=== PATIENT | male | born 1995 | race Caucasian/White ===

== ENCOUNTER 2022-03-20 09:35 | Emergency (ER) | payer OTHER ==
[2022-03-20 09:41] VITALS: RESP 16; TEMP 98.7
[2022-03-20] MEDS ORDERED: SODIUM CHLORIDE 0.9% 1,000 ML IV STA (09:55)
[2022-03-20 10:17] LABS: Basophils % (A) 1 %; Eosinophils # (A) 0.1 k/uL (0-0.7); Eosinophils % (A) 1 %; HGB 15.5 gm/dL (13.0-17.5); Lymphocytes # (A) 1.4 k/uL (1.0-4.8); Lymphocytes % (A) 20 %; MCH 28.5 pg (25.0-35.0); MCV 86.3 fL (80.0-100.0); Mean Platelet Volume 7.4; Monocytes # (A) 0.4 k/uL (0-1.0); Monocytes % (A) 5 %; Neutrophils # (A) 5.1 k/uL (1.3-7.7); Neutrophils % (A) 72 %; Platelet Count 262 k/uL (150-450); RBC 5.44 m/uL (4.30-5.90); RDW 12.6 % (11.5-15.5); WBC 7.1 k/uL (3.8-10.6)
--- NOTE | 2022-03-20 10:21 | XR ---
EXAMINATION TYPE: XR chest 2V DATE OF EXAM: 03/20/2022 10:17 AM COMPARISON: None TECHNIQUE: XR chest 2V Frontal and lateral views of the chest. CLINICAL INDICATION:Male, 27 years old with history of Weakness; FINDINGS: Lungs/Pleura: There is no evidence of pleural effusion, focal consolidation, or pneumothorax. Pulmonary vascularity: Unremarkable. Heart/mediastinum: Cardiomediastinal silhouette is unremarkable. Musculoskeletal: No acute osseous pathology. IMPRESSION: No acute cardiopulmonary disease/process.
--- NOTE | 2022-03-20 10:34 | ED ---
Weakness HPI - General Chief complaint: Weakness Stated complaint: Dehydration Time Seen by Provider: 03/20/22 09:43 Source: patient, EMS Mode of arrival: EMS Limitations: no limitations - History of Present Illness Initial comments: This is a 27-year-old male who presents to the emergency department for weakness, disorientation, and decreased sensation in all extremities. Patient states that he is being worked up for Yoohmlo-Dgalw-Ktqhr disease. Currently seeing Dr. Tapia, neurology, and has seen him 3 times since December of this year. 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 The last step is genetic testing, which has yet to be scheduled. Treatment at this time is going to consist of physical therapy which he is waiting on an appointment for. His muscle weakness and decreased sensation has continued to progress. States that he does not feel much pain anywhere in his body. The disorientation is new, he feels like "I am not in my own brain". Also complains of sleeping problems, in that he is unable to feel rested. Also has problems with memory loss and holding attention. Denies any fevers, chills, sore throat, cough, dyspnea, chest pain, palp itations, abdominal pain, nausea, vomiting, diarrhea, back pain, or headaches. MD Complaint: generalized weakness Context: other (Ckfpglo-Sgcmk-Pffbu disease) - Related Data Home Medications Medication Instructions Recorded Confirmed Budesonide/Formoterol Fumarate 2 puff INHALATION RT-BID 03/20/22 03/20/22 [Symbicort 80-4.5 Mcg Inhaler] Cyanocobalamin (Vitamin B-12) 1,000 mcg PO DAILY 03/20/22 03/20/22 [Vitamin B-12] Ergocalciferol [Vitamin D2 (1250 1,250 mcg PO FR 03/20/22 03/20/22 Mcg = 28289 Iu)] Fluticasone Propion/Salmeterol 2 puff INHALATION RT-BID 03/20/22 03/20/22 [Advair Hfa 45-21 Mcg Inhaler] Allergies Allergy/AdvReac Type Severity Reaction Status Date / Time ciprofloxacin [From Cipro] Allergy Rash/Hives Verified 03/20/22 11:22 Latex, Natural Rubber Allergy Rash/Hives Verified 03/20/22 11:22 morphine Allergy Rash/Hives Verified 03/20/22 11:22 sulfamethoxazole Allergy Rash/Hives Verified 03/20/22 11:22 [From Bactrim] trimethoprim [From Bactrim] Allergy Rash/Hives Verified 03/20/22 11:22 Review of Systems ROS Statement: Those systems with pertinent positive or pertinent negative responses have been documented in the HPI. ROS Other: All systems not noted in ROS Statement are negative. 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 Absent: respiratory distress, wheezes, rales, rhonchi, stridor Cardiovascular Exam: Present: regular rate, normal rhythm, normal heart sounds. Absent: systolic murmur, diastolic murmur, rubs, gallop, clicks Neurological exam: Present: alert, oriented X3, CN II-XII intact, other (Decreased sphincter tone) Psychiatric exam: Present: normal affect, normal mood Skin exam: Present: warm, dry, intact, normal color. Absent: rash Course Vital Signs 03/20/22 03/20/22 09:36 11:44 Temperature 98.7 F Pulse Rate 83 98 Respiratory 16 16 Rate Blood Pressure 133/72 125/78 O2 Sat by Pulse 100 98 Oximetry Medical Decision Making - Medical Decision Making This is a 27-year-old male who presents to the emergency department for muscle weakness and disorientation. Lab work was nonactionable. Given the newer symptoms, computed tomography scan of the brain was obtained revealing no acute abnormalities. Patient was found to have a PVR of 0, however he does have little to no sphincter tone. I spoke with Dr. Montejo, who spoke with Dr. 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 Given that he has numbness and decreased sensation in the bilateral lower extremities, as well as loss of bowel/bladder control, CT scan of the lumbar spine was obtained to evaluate for possible cauda equina syndrome. This revealed no irregularities. Patient will be discharged home with instructions to follow up with his neurologist as an outpatient. Return precautions reviewed in depth, the patient is instructed to return to the emergency department with any new, worsening, or concerning symptoms. Patient verbalized understanding. This case was discussed in detail with the attending ED physician. Presentation, findings, and treatment plan discussed in detail as well. - Lab Data Result diagrams: 03/20/22 10:07 03/20/22 10:07 Lab Results 03/20/22 03/20/22 03/20/22 Range/Units 09:55 09:55 10:07 WBC 7.1 (3.8-10.6) k/uL RBC 5.44 (4.30-5.90) m/uL Hgb 15.5 (13.0-17.5) gm/dL Hct 47.0 (39.0-53.0) % MCV 86.3 (80.0-100.0) fL MCH 28.5 (25.0-35.0) pg MCHC 33.0 (31.0-37.0) g/dL RDW 12.6 (11.5-15.5) % Plt Count 262 (150-450) k/uL MPV 7.4 Neutrophils % 72 % Lymphocytes % 20 % Monocytes % 5 % Eosinophils % 1 % Basophils % 1 % Neutrophils # 5.1 (1.3-7.7) k/uL Lymphocytes # 1.4 (1.0-4.8) k/uL Monocytes # 0.4 (0-1.0) k/uL Eosinophils # 0.1 (0-0.7) k/uL Basophils # 0.0 (0-0.2) k/uL Sodium (137-145) mmol/L Potassium (3.5-5.1) mmol/L Chloride (98-107) mmol/L Carbon Dioxide (22-30) mmol/L Anion Gap mmol/L BUN (9-20) mg/dL Creatinine (0.66-1.25) mg/dL Est GFR (CKD-EPI)AfAm (>60 ml/min/1.73 sqM) Est GFR (CKD-EPI)NonAf (>60 ml/min/1.73 sqM) Glucose (74-99) mg/dL Calcium (8.4-10.2) mg/dL Phosphorus (2.5-4.5) mg/dL Magnesium (1.6-2.3) mg/dL Total Bilirubin (0.2-1.3) mg/dL AST (17-59) U/L ALT (4-49) U/L Alkaline Phosphatase (38-126) U/L Total Protein (6.3-8.2) g/dL Albumin (3.5-5.0) g/dL Urine Color Colorless Urine Appearance Clear (Clear) Urine pH 6.0 (5.0-8.0) Ur Specific [place] 1.006 (1.001-1.035) Urine Protein Negative (Negative) Urine Glucose (UA) Negative (Negative) Urine Ketones 1+ H (Negative) Urine Blood Negative (Negative) Urine Nitrite Negative (Negative) Urine Bilirubin Negative (Negative) Urine Urobilinogen <2.0 (<2.0) mg/dL Ur Leukocyte Esterase Negative (Negative) Urine Opiates Screen Not Detected (NotDetected) Ur Oxycodone Screen Not Detected (NotDetected) Urine Methadone Screen Not Detected (NotDetected) Ur Propoxyphene Screen Not Detected (NotDetected) Ur Barbiturates Screen Not Detected (NotDetected) U Tricyclic Antidepress Not Detected (NotDetected) Ur Phencyclidine Scrn Not Detected (NotDetected) Ur Amphetamines Screen Not Detected (NotDetected) U Methamphetamines Scrn Not Detected (NotDetected) U Benzodiazepines Scrn Not Detected (NotDetected) Urine Cocaine Screen Not Detected (NotDetected) U Marijuana (THC) Screen Not Detected (NotDetected) 03/20/22 Range/Units 10:07 WBC (3.8-10.6) k/uL RBC (4.30-5.90) m/uL Hgb (13.0-17.5) gm/dL Hct (39.0-53.0) % MCV (80.0-100.0) fL MCH (25.0-35.0) pg MCHC (31.0-37.0) g/dL RDW (11.5-15.5) % Plt Count (150-450) k/uL MPV Neutrophils % % Lymphocytes % % Monocytes % % Eosinophils % % Basophils % % Neutrophils # (1.3-7.7) k/uL Lymphocytes # (1.0-4.8) k/uL Monocytes # (0-1.0) k/uL Eosinophils # (0-0.7) k/uL Basophils # (0-0.2) k/uL Sodium 139 (137-145) mmol/L Potassium 3.6 (3.5-5.1) mmol/L Chloride 114 H (98-107) mmol/L Carbon Dioxide 17 L (22-30) mmol/L Anion Gap 8 mmol/L BUN 20 (9-20) mg/dL Creatinine 0.67 (0.66-1.25) mg/dL Est GFR (CKD-EPI)AfAm >90 (>60 ml/min/1.73 sqM) Est GFR (CKD-EPI)NonAf >90 (>60 ml/min/1.73 sqM) Glucose 88 (74-99) mg/dL Calcium 8.4 (8.4-10.2) mg/dL Phosphorus 2.1 L (2.5-4.5) mg/dL Magnesium 1.7 (1.6-2.3) mg/dL Total Bilirubin 0.6 (0.2-1.3) mg/dL AST 20 (17-59) U/L ALT 19 (4-49) U/L Alkaline Phosphatase 58 (38-126) U/L Total Protein 6.3 (6.3-8.2) g/dL Albumin 3.9 (3.5-5.0) g/dL Urine Color Urine Appearance (Clear) Urine pH (5.0-8.0) Ur Specific [place] (1.001-1.035) Urine Protein (Negative) Urine Glucose (UA) (Negative) Urine Ketones (Negative) Urine Blood (Negative) Urine Nitrite (Negative) Urine Bilirubin (Negative) Urine Urobilinogen (<2.0) mg/dL Ur Leukocyte Esterase (Negative) Urine Opiates Screen (NotDetected) Ur Oxycodone Screen (NotDetected) Urine Methadone Screen (NotDetected) Ur Propoxyphene Screen (NotDetected) Ur Barbiturates Screen (NotDetected) U Tricyclic Antidepress (NotDetected) Ur Phencyclidine Scrn (NotDetected) Ur Amphetamines Screen (NotDetected) U Methamphetamines Scrn (NotDetected) U Benzodiazepines Scrn (NotDetected) Urine Cocaine Screen (NotDetected) U Marijuana (THC) Screen (NotDetected) - Radiology Data Radiology results: report reviewed, image reviewed Disposition Clinical Impression: Weakness, CMT (Dyseiom-Expzi-Ufpch disease) Disposition: HOME SELF-CARE Instructions (If sedation given, give patient instructions): Weakness (ED) Additional Instructions: Return to the emergency department with any new, worsening, or concerning symptoms. Follow-up with your neurologist for an outpatient MRI of the lumbar spine. Your CT scan of the lumbar spine was normal. Is patient prescribed a controlled substance at d/c from ED?: No Referrals: Megan Cruz DO [Primary Care Provider] - 1-2 days
[2022-03-20 10:41] LABS: ALT 19 U/L (4-49); AST 20 U/L (17-59); African American GFR (CKD) >90 (>60 ml/min/1.73 sqM); Albumin 3.9 g/dL (3.5-5.0); Alkaline Phosphatase 58 U/L (38-126); Anion Gap 8 mmol/L; Blood Urea Nitrogen 20 mg/dL (9-20); Calcium 8.4 mg/dL (8.4-10.2); Carbon Dioxide 17 mmol/L (22-30); Chloride 114 mmol/L (98-107); Glucose 88 mg/dL (74-99); Magnesium 1.7 mg/dL (1.6-2.3); Non-African American GFR(CKD) >90 (>60 ml/min/1.73 sqM); Phosphorus 2.1 mg/dL (2.5-4.5); Potassium 3.6 mmol/L (3.5-5.1); Sodium 139 mmol/L (137-145); Total Bilirubin 0.6 mg/dL (0.2-1.3); Total Protein 6.3 g/dL (6.3-8.2)
[2022-03-20 11:13] LABS: Appearance,Urine Clear (Clear); Bilirubin,Urine Negative (Negative); Blood,Urine Negative (Negative); Color,Urine Colorless; Glucose,Urine (UA) Negative (Negative); Ketones,Urine 1+ (Negative); Leukocyte Esterase,Urine Negative (Negative); Nitrite,Urine Negative (Negative); Protein,Urine Negative (Negative); Specific Gravity,Urine 1.006 (1.001-1.035); Urobilinogen,Urine <2.0 mg/dL (<2.0)
--- NOTE | 2022-03-20 11:29 | CT ---
EXAMINATION TYPE: CT brain wo con CT DLP: 1056.4 mGycm, Automated exposure control for dose reduction was used. DATE OF EXAM: 03/20/2022 11:14 AM COMPARISON: None. CLINICAL INDICATION:Male, 27 years old with history of Facial numbness, disorientation, Facial numbne ss, disorientation TECHNIQUE: Brain: Axial CT images of the brain were obtained with coronal and sagittal reformats created and rev iewed. Contrast used: None. Oral contrast used: None. FINDINGS: Brain: Extra-axial spaces: No abnormal extra-axial fluid collections. Ventricular system: Within normal limits Cerebral parenchyma: No acute intraparenchymal hemorrhage or mass effect. The baez-white junction is well differentiated. Cerebellum: Unremarkable. Mass effect: No evidence of midline shift. Intracranial vasculature: unremarkable Soft tissues: Normal. Calvarium/osseous structures: No depressed skull fracture. Paranasal sinuses and mastoid air cells: Clear Visualized orbits: Orbital contents are intact. IMPRESSION: No acute intracranial process.
[2022-03-20 11:33] LABS: Phencyclidine Screen,Urine Not Detected (NotDetected); Urn Cannabinoid Scrn Not Detected (NotDetected)
[2022-03-20 11:34] LABS: Amphetamine Screen,Urine Not Detected (NotDetected); Barbiturate Screen,Urine Not Detected (NotDetected); Benzodiazepines Screen,Urine Not Detected (NotDetected); Cocaine Screen,Urine Not Detected (NotDetected); Methadone Screen, Urine Not Detected (NotDetected); Opiate Screen,Urine Not Detected (NotDetected); Oxycodone Screen, Urine Not Detected (NotDetected); Tricyclic Antidepressant,Urine Not Detected (NotDetected)
--- NOTE | 2022-03-20 13:44 | CT ---
EXAMINATION TYPE: CT lumbar spine wo con DATE OF EXAM: 03/20/2022 COMPARISON: None HISTORY: Bilateral lower extremity numbness CT DLP: 587.6 mGycm Automated exposure control for dose reduction was used. An unenhanced CT of the lumbar spine was performed. Bone and soft tissue window settings are submitt ed as well as coronal and sagittal reconstructions. FINDINGS: Lumbar vertebral bodies show preserved height and alignment, lumbar vertebral bodies are intact. Bone mineralization is maintained. Disc spaces are maintained. No evident spinal stenosis or disc herniat ion. No evident neural foraminal encroachment. 4 nonrib-bearing lumbar vertebral segments are present , suspect transitional vertebral body. Lung bases are clear as visualized. Punctate calcification s associated with the right kidney and lef t kidney. L1-L2: Normal disc space height. No disc herniation protrusion or central stenosis. No facet joint arthropathy. No evidence for foraminal encroachment. L2-L3: Normal disc space height. No disc herniation protrusion or central stenosis. No facet joint arthropathy. No evidence for foraminal encroachment. L3-L4: Normal disc space height. No disc herniation protrusion or central stenosis. No facet joint arthropathy. No evidence for foraminal encroachment. L4-S1: Normal disc space height. No disc herniation protrusion or central stenosis. No facet joint arthropathy. No evidence for foraminal encroachment. IMPRESSION: No paraspinal masses are identified. Lumbar segments are intact. Bilateral nephrolithiasis is nonobs tructive.
[2022-03-20 13:59] VITALS: BP 118/74; PULSE 72
== END 2022-03-20 14:03 | disposition home or self-care (01) ==
LOC: EC 09:35
DX: E86.0 Dehydration (principal); G50.9 Disorder of trigeminal nerve, unspecified; J43.9 Emphysema, unspecified; Z88.1 Allergy status to other antibiotic agents; Z91.040 Latex allergy status; Z88.5 Allergy status to narcotic agent; Z88.2 Allergy status to sulfonamides; Z79.51 Long term (current) use of inhaled steroids
CPT/HCPCS: 36415; 51798; 70450; 71046; 72131; 80053; 80306; 81003; 83735; 84100; 85025; 96360; 99284

== ENCOUNTER 2022-03-22 12:40 | Inpatient (IN) | payer OTHER ==
[2022-03-22] MEDS ORDERED: LORazepam 1 MG TAB PO STA (13:05)
--- NOTE | 2022-03-22 13:06 | ED ---
General Adult HPI - General Chief complaint: Psychiatric Symptoms Stated complaint: EPS eval Time Seen by Provider: 03/22/22 12:41 Source: EMS, RN notes reviewed, old records reviewed Mode of arrival: EMS Limitations: no limitations - History of Present Illness Initial comments: Patient is a 27-year-old male with past medical history remarkable for anxiety, depression, Bipolar disorder, peripheral nerve disease who presents emergency Department complaining of anxiety, perseverant sober . States he was recently diagnosed with the nerve disease, and states he can't think of anything other than over the last few days. He denies any suicidal or homicidal ideations, attempts, plans. Denies any visual or auditory hallucinations. He describes his experience as "out of body" when he is watching himself and that he can only think about . He is due to follow-up with psychiatry next week but doesn't believe she can make it until then. Wants to be evaluated at this time. Unknown psychiatric medications. Denies any other acute complaints at this time couldn't chest pain, abdominal pain, nausea, vomiting. States he is anxious. Denies any alcohol use, drug use. His no other acute complaints at this time. Presents wishing to speak with psychiatry. - Related Data Home Medications Medication Instructions Recorded Confirmed Budesonide/Formoterol Fumarate 2 puff INHALATION RT-BID 03/20/22 03/22/22 [Symbicort 80-4.5 Mcg Inhaler] Cyanocobalamin (Vitamin B-12) 1,000 mcg PO DAILY 03/20/22 03/22/22 [Vitamin B-12] Ergocalciferol [Vitamin D2 (1250 1,250 mcg PO FR 03/20/22 03/22/22 Mcg = 60770 Iu)] Fluticasone Propion/Salmeterol 2 puff INHALATION RT-BID 03/20/22 03/22/22 [Advair Hfa 45-21 Mcg Inhaler] OLANZapine [ZyPREXA] 2.5 mg PO HS 03/22/22 03/22/22 Venlafaxine HCl [Effexor] 37.5 mg PO DAILY 03/22/22 03/22/22 Allergies Allergy/AdvReac Type Severity Reaction Status Date / Time ciprofloxacin [From Cipro] Allergy Rash/Hives Verified 03/22/22 12:46 Latex, Natural Rubber Allergy Rash/Hives Verified 03/22/22 12:46 morphine Allergy Rash/Hives Verified 03/22/22 12:46 sulfamethoxazole Allergy Rash/Hives Verified 03/22/22 12:46 [From Bactrim] trimethoprim [From Bactrim] Allergy Rash/Hives Verified 03/22/22 12:46 Review of Systems ROS Statement: Those systems with pertinent positive or pertinent negative responses have been documented in the HPI. Review of Systems: CONST: Denies fever EYES: Denies blurry vision ENT: Denies nasal congestion C/V: Denies Chest pain RESP: Denies shortness of breath GI: Denies abdominal pain : Denies dysuria SKIN: Denies rash. MSK: Denies joint pain. NEURO: Denies headache PSYCH: Denies suicidal and homicidal ideations/plans/attempts. Denies visual or auditory hallucinations. Endorses anxiety ROS Other: All systems not noted in ROS Statement are negative. 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 HEAD: Normal with no signs of head trauma. EYES: PERRLA, EOMI, conjunctiva normal, no discharge. Pupils are 3 mm and equal bilaterally. ENT: Hearing grossly intact, normal oropharynx. RESPIRATORY: Clear breath sounds bilaterally. No wheezes, rales, or rhonchi. C/V: Regular rate and rhythm. S1 and S2 auscultated. Peripheral pulses 2+ and intact throughout. ABD: Abd is soft, nontender, nondistended EXT: Normal range of motion, no obvious deformity SKIN: No rashes or lesions observed on exposed skin. NEURO: Alert and oriented 4. Limitations: no limitations Course Vital Signs 03/22/22 03/22/22 12:44 17:03 Temperature 97.7 F 98.8 F Pulse Rate 85 Pulse Rate [ 101 H Right Sitting Pulse Oximetery ] Respiratory 22 16 Rate Blood Pressure 119/108 Blood Pressure 127/80 [Right Arm Sitting] O2 Sat by Pulse 100 97 Oximetry Medical Decision Making - Medical Decision Making Based on the patient's presentation and physical exam, I do believe he would isai efit from a psychiatric evaluation. Was placed in green scrubs. Sitter was ordered. We'll obtain a BAT, which is 0. UDS is pending. I do not believe that we require further laboratory studies or imaging at this time. His no other acute complaints. Vital signs within normal limits. Will be given a dose of Ativan for anxiety. At this time, patient is medically cleared. Disposition is pending EPS and psychiatry evaluation.Patient was evaluated by EPS and determined that he meets inpatient criteria. He'll be admitted to inpatient psychiatry. - Lab Data Lab Results 03/22/22 03/22/22 Range/Units 13:10 15:30 Urine Opiates Screen Not Detected (NotDetected) Ur Oxycodone Screen Not Detected (NotDetected) Urine Methadone Screen Not Detected (NotDetected) Ur Propoxyphene Screen Not Detected (NotDetected) Ur Barbiturates Screen Not Detected (NotDetected) U Tricyclic Antidepress Not Detected (NotDetected) Ur Phencyclidine Scrn Not Detected (NotDetected) Ur Amphetamines Screen Not Detected (NotDetected) U Methamphetamines Scrn Not Detected (NotDetected) U Benzodiazepines Scrn Not Detected (NotDetected) Urine Cocaine Screen Not Detected (NotDetected) U Marijuana (THC) Screen Not Detected (NotDetected) Coronavirus (PCR) Not Detected (Not Detectd) Disposition Clinical Impression: Encounter for psychiatric assessment Disposition: ADMITTED IP TO THIS [facility] Condition: Stable
[2022-03-22 13:58] LABS: Amphetamine Screen,Urine Not Detected (NotDetected); Barbiturate Screen,Urine Not Detected (NotDetected); Benzodiazepines Screen,Urine Not Detected (NotDetected); Cocaine Screen,Urine Not Detected (NotDetected); Methadone Screen, Urine Not Detected (NotDetected); Opiate Screen,Urine Not Detected (NotDetected); Oxycodone Screen, Urine Not Detected (NotDetected); Phencyclidine Screen,Urine Not Detected (NotDetected); Tricyclic Antidepressant,Urine Not Detected (NotDetected); Urn Cannabinoid Scrn Not Detected (NotDetected)
[2022-03-22] MEDS ORDERED: haloperidoL 5 MG TAB PO PRN (16:09)
[2022-03-22] MEDS ORDERED: MAG HYDROX/AL HYDROX/SIMETH 30 ML CUP PO PRN (16:09)
[2022-03-22] MEDS ORDERED: MAGNESIUM HYDROXIDE 2,400 MG/10 ML CUP PO PRN (16:09)
[2022-03-22] MEDS ORDERED: hydrOXYzine HCL 50 MG/ML 1 ML VIAL IM PRN (16:09)
[2022-03-22] MEDS ORDERED: ACETAMINOPHEN TAB 325 MG TAB PO PRN (16:09)
[2022-03-22] MEDS ORDERED: HALOPERIDOL LACTATE 5 MG/ML 1 ML VIAL IM PRN (16:09)
[2022-03-22] MEDS ORDERED: NICOTINE 14MG/24HR PATCH TRANSDERM SCH (16:30)
[2022-03-22 17:51] LABS: Appearance,Urine Clear (Clear); Bilirubin,Urine Negative (Negative); Blood,Urine Negative (Negative); Color,Urine Light Yellow; Glucose,Urine (UA) Negative (Negative); Ketones,Urine 2+ (Negative); Leukocyte Esterase,Urine Negative (Negative); Nitrite,Urine Negative (Negative); PH, Urine 5.5 (5.0-8.0); Protein,Urine Negative (Negative); Specific Gravity,Urine 1.014 (1.001-1.035); Urobilinogen,Urine <2.0 mg/dL (<2.0)
[2022-03-22] MEDS ORDERED: FLUTICASONE PROPION INHALATION SCH (20:00)
[2022-03-22] MEDS ORDERED: SALMETEROL INHALATION SCH (20:00)
[2022-03-22] MEDS ORDERED: [UNRECOGNIZED DRUG - OTHER] INHALATION SCH (20:00)
[2022-03-22] MEDS: traZODone HCL 50 MG TAB PO SCH (20:30)
[2022-03-22] MEDS: SYMBICORT 80-4.5 MCG INHALER INHALATION SCH (20:30)
--- NOTE | 2022-03-23 01:27 | P.CONS ---
History of Present Illness - Reason for Consult Consult date: 03/22/22 - History of Present Illness The patient is a 27-year-old male with a PMH of asthma who presented to the emergency room with complaints of depression and suicidal ideation. The patient was admitted the mental health unit where he was seen and evaluated. 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 Patient reports that he has developed paresthesias of his upper and lower extremities including his hands and feet extending to mid shins and mid forearms. He reports still having pressure sensation as well as temperature with some diminished pain sensation. He denied any additional complaints. He denied experiencing chest discomfort, shortness of breath, fever, chills, cough, nausea, vomiting, abdominal pain, diarrhea. Denied tobacco, illicit substance, or alcohol use. Review of systems: Pertinent positives and negatives as discussed in HPI, a complete review of systems was performed and all other systems are negative. Physical examination: General: non toxic, no distress, appears older than stated age, normal weight Derm: no unusual rashes/lesions, no unusual ecchymoses, warm, dry Head: atraumatic, normocephalic, symmetric Eyes: EOMI, no lid lag, anicteric sclera ENT: Nose and ears atraumatic, no thrush, no pharyngeal erythema Neck: trachea midline, supple Mouth: no lip lesion, mucus membranes moist Cardiovascular: S1S2 reg, no murmur, no edema Lungs: CTA bilateral, no rhonchi, no rales , no accessory muscle use Abdominal: soft, nontender to palpation, no guarding Ext: no gross muscle atrophy, no contractures, Neuro: No gross focal neuro deficits noted Psych: Alert, oriented, appropriate affect Assessment/plan Chronic Asthma -Continue the home meds Depression with suicidal ideation -As per psychiatry Thank you for allowing us to participate in the care of this patient. We will follow peripherally. Do not hesitate to contact us with questions. Someone can be reached from the [facility] hospitalist group at all hours of the day at [phone]. 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, emphysema History of Any Multi-Drug Resistant Organisms: None Reported Past Surgical History: Adenoidectomy Past Anesthesia/Blood Transfusion Reactions: No Reported Reaction Past Psychological History: Anxiety, Bipolar, Depression Smoking Status: Never smoker Past Alcohol Use History: None Reported Past Drug Use History: None Reported - Past Family History Father Family Medical History: Hypertension Medications and Allergies Home Medications Medication Instructions Recorded Confirmed Type Budesonide/Formoterol Fumarate 2 puff INHALATION RT-BID 03/20/22 03/22/22 History [Symbicort 80-4.5 Mcg Inhaler] Cyanocobalamin (Vitamin B-12) 1,000 mcg PO DAILY 03/20/22 03/22/22 History [Vitamin B-12] Ergocalciferol [Vitamin D2 (1250 1,250 mcg PO FR 03/20/22 03/22/22 History Mcg = 65370 Iu)] Fluticasone Propion/Salmeterol 2 puff INHALATION RT-BID 03/20/22 03/22/22 History [Advair Hfa 45-21 Mcg Inhaler] OLANZapine [ZyPREXA] 2.5 mg PO HS 03/22/22 03/22/22 History Venlafaxine HCl [Effexor] 37.5 mg PO DAILY 03/22/22 03/22/22 History Allergies Allergy/AdvReac Type Severity Reaction Status Date / Time ciprofloxacin [From Cipro] Allergy Rash/Hives Verified 03/22/22 12:46 Latex, Natural Rubber Allergy Rash/Hives Verified 03/22/22 12:46 morphine Allergy Rash/Hives Verified 03/22/22 12:46 sulfamethoxazole Allergy Rash/Hives Verified 03/22/22 12:46 [From Bactrim] trimethoprim [From Bactrim] Allergy Rash/Hives Verified 03/22/22 12:46 Physical Exam Vitals: Vital Signs Temp Pulse Pulse Resp BP BP Pulse Ox 03/22/22 17:03 98.8 F 101 H 16 127/80 97 03/22/22 12:44 97.7 F 85 22 119/108 100 Intake and Output 03/22/22 03/22/22 03/22/22 06:59 14:59 22:59 Other: Weight 54.431 kg 53.977 kg Results Labs: Abnormal Lab Results - Last 24 Hours (Table) 03/22/22 Range/Units 13:10 Urine Ketones 2+ H (Negative)
[2022-03-23] MEDS ORDERED: VENLAFAXINE HCL ER 37.5 MG CAP PO SCH (09:00)
[2022-03-23] MEDS: SYMBICORT 80-4.5 MCG INHALER INHALATION SCH ×2 (09:15→21:28)
[2022-03-23] MEDS: hydrOXYzine pamoate 25 MG CAP PO PRN (09:18)
[2022-03-23 09:56] LABS: Basophils # (A) 0.1 k/uL (0-0.2); Basophils % (A) 1 %; Eosinophils # (A) 0.1 k/uL (0-0.7); Eosinophils % (A) 1 %; HCT 52.4 % (39.0-53.0); HGB 17.4 gm/dL (13.0-17.5); Lymphocytes # (A) 1.4 k/uL (1.0-4.8); Lymphocytes % (A) 24 %; MCH 29.7 pg (25.0-35.0); MCHC 33.2 g/dL (31.0-37.0); MCV 89.2 fL (80.0-100.0); Mean Platelet Volume 7.2; Monocytes # (A) 0.4 k/uL (0-1.0); Monocytes % (A) 7 %; Neutrophils % (A) 65 %; Platelet Count 296 k/uL (150-450); RBC 5.88 m/uL (4.30-5.90); WBC 6.1 k/uL (3.8-10.6)
[2022-03-23 10:13] LABS: ALT 21 U/L (4-49); AST 21 U/L (17-59); African American GFR (CKD) >90 (>60 ml/min/1.73 sqM); Albumin 5.1 g/dL (3.5-5.0); Alkaline Phosphatase 64 U/L (38-126); Anion Gap 8 mmol/L; Bilirubin, Delta 0.1 mg/dL (0.0-0.2); Blood Urea Nitrogen 15 mg/dL (9-20); Calcium 9.9 mg/dL (8.4-10.2); Carbon Dioxide 26 mmol/L (22-30); Chloride 104 mmol/L (98-107); Glucose 64 mg/dL (74-99); Non-African American GFR(CKD) >90 (>60 ml/min/1.73 sqM); Potassium 5.4 mmol/L (3.5-5.1); Sodium 138 mmol/L (137-145); Total Bilirubin 1.1 mg/dL (0.2-1.3); Total Protein 8.2 g/dL (6.3-8.2)
[2022-03-23] MEDS ORDERED: FLUoxetine HCL 10 MG CAP PO STA (10:31)
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
[2022-03-23 14:18] LABS: Chol/HDL Ratio 3.01 Ratio; LDL Cholesterol,Calculated 79.2 mg/dL (0.0-131.0); VLDL Calculation 13.02 mg/dL (5.00-40.00)
[2022-03-23] MEDS: traZODone HCL 50 MG TAB PO SCH (21:28)
[2022-03-24] MEDS: SYMBICORT 80-4.5 MCG INHALER INHALATION SCH ×2 (09:17→20:56)
[2022-03-24] MEDS: FLUoxetine HCL 20 MG CAP PO SCH (09:17)
--- NOTE | 2022-03-24 20:43 | P.PN ---
Progress Note - Text Progress Note Date: 03/24/22 Interval History: Patient was directable and agreeable to speak with property underwriter in the office. At this time patient denies any suicidal or homical ideations, intent or plan. Patient denies any auditory, visual hallucinations and denies any paranoia or delusions. Patient denies any side effects from the medications and has been compliant with meds. He reports he still feels "off", doesn't feel his body in the same way he used to, due to his concerns over his CMT disease. He denies panic attacks. He states he feels no emotions and thinks about his "" constantly. He denies thoughts of killing or hurting himself, but thinks about his own natural . He reports he has been under a lot of stress over the past 6 months. Mental Status Exam: General Appearance: Patient appears to be stated age, just showered, dressed in clean attire, unshaven. Behavior: Patient is calmly seated without any agitated behavior. Speech: Patient's speech is fluent and non-pressured. Mood/Affect: Mood is "off", affect is congruent and constricted. Suicidality/Homicidality: Patient denies having any suicidal or homicidal ideation intent or plan. Perceptions: Patient denies any visual hallucinations and denies any auditory hallucinations. Thought process: Ruminates Though content: There is no evidence of any delusional thought content. Memory and concentration: AOX3, grossly intact for the purposes of this session Judgment and insight: Improving mildly Assessment: Depersonalization/derealization disorder Major depressive disorder, recurrent Generalized anxiety disorder Plan: -Patient continues to meet criteria for inpatient psychiatric admission for symptom stabilization and safety. -Medications: Prozac increased to 40 mg daily starting today for depression/anxiety. He may benefit from the addition of an antipsychotic for his ruminations and fixation on his . -When necessary Ativan and Haldol for agitation/aggression. -SW on board for discharge planning. Encouraged the patient to participate in milieu.
[2022-03-24] MEDS: traZODone HCL 50 MG TAB PO SCH (20:45)
[2022-03-25] MEDS: SYMBICORT 80-4.5 MCG INHALER INHALATION SCH ×2 (09:00→20:47)
[2022-03-25] MEDS: FLUoxetine HCL 20 MG CAP PO SCH (09:00)
[2022-03-25] MEDS ORDERED: traZODone HCL 50 MG TAB PO PRN (16:09)
--- NOTE | 2022-03-25 16:13 | P.PN ---
Progress Note - Text Progress Note Date: 03/25/22 Interval History: Patient was directable and agreeable to speak with brief writer. He reports he still feels "out of it" and "maybe a little depressed", reports having "no thoughts" except for repeated thoughts about his own . He denies suicidal or homical ideations, intent or plan, but continuously thinks about his own due to his CMT disease. Patient denies any auditory, visual hallucinations and denies any paranoia or delusions. Patient denies any side effects from the medications and has been compliant with meds. He reports he is forcing himself to eat but doesn't have much of an appetite, and believes he has lost weight. His BMI is in the underweight range. He reports fair sleep with the Trazodone but does not feel well rested. Mental Status Exam: General Appearance: Patient appears to be stated age, dressed in clean baggy attire, unshaven, appears underweight. Behavior: Patient is calm without any agitated behavior. Speech: Patient's speech is fluent and non-pressured. Mood/Affect: Mood is "out of it", affect is congruent and constricted. Suicidality/Homicidality: Patient denies having any suicidal or homicidal ideation intent or plan, but reports he is repeatedly thinking about his down . Perceptions: Patient denies any visual hallucinations and denies any auditory hallucinations. Thought process: Ruminates Though content: There is no evidence of any delusional thought content, but is fixated on his own due to his CMT disease. Memory and concentration: AOX3, grossly intact for the purposes of this session Judgment and insight: Improving mildly Assessment: Depersonalization/derealization disorder Major depressive disorder, recurrent, with concern for psychotic features Generalized anxiety disorder Plan: -Patient continues to meet criteria for inpatient psychiatric admission for symptom stabilization and safety. -Medications: Continue Prozac 40 mg daily for depression/anxiety. Start Zyprexa 5 mg QHS for augmentation/obsession on his own /appetite/sleep. -When necessary Ativan and Haldol for agitation/aggression. -SW on board for discharge planning. Encouraged the patient to participate in milieu.
[2022-03-25] MEDS: OLANZapine 5 MG TAB PO SCH (20:47)
[2022-03-26] MEDS: SYMBICORT 80-4.5 MCG INHALER INHALATION SCH ×2 (08:53→20:55)
[2022-03-26] MEDS: FLUoxetine HCL 20 MG CAP PO SCH (08:53)
--- NOTE | 2022-03-26 20:06 | P.PN ---
Progress Note - Text Progress Note Date: 03/26/22 Interval History: Patient was directable and agreeable to speak with screenplay writer. He reports he still feels "a little more clear headed" today after starting the Zyprexa last night, and feels his obsessive thoughts about his own are "25%" less intense today, but still present. He denies active suicidal or homical ideations, intent or plan, but continuously thinks about his own due to his CMT disease. Patient denies any auditory, visual hallucinations, and denies any paranoia, but does appear to be somatically preoccupied. Patient has been compliant with meds and reports feeling a little bit dizzy today. He reports he is forcing himself to eat but still doesn't have much of an appetite. He reports good sleep, denies depressed mood but still appears anxious. Mental Status Exam: General Appearance: Patient appears to be stated age, dressed in clean baggy attire, unshaven, appears underweight. Behavior: Patient is calm without any agitated behavior. Speech: Patient's speech is fluent and non-pressured. Mood/Affect: Mood is anxious, "a little more clear headed", affect is congruent and constricted. Suicidality/Homicidality: Patient denies having any active suicidal or homicidal ideation intent or plan, but reports he is repeatedly thinking about his down . Perceptions: Patient denies any visual hallucinations and denies any auditory hallucinations. Thought process: Ruminates Though content: No overt paranoid delusions, but he does appear to be somatically preoccupied and fixated on his own due to his CMT disease. Memory and concentration: AOX3, grossly intact for the purposes of this session Judgment and insight: Improving mildly Assessment: Depersonalization/derealization disorder Major depressive disorder, recurrent, with concern for psychotic features Generalized anxiety disorder Plan: -Patient continues to meet criteria for inpatient psychiatric admission for symptom stabilization and safety. -Medications: Continue Prozac 40 mg daily for depression/anxiety. Increase Zyprexa to 2.5 mg daily in the morning and 5 mg QHS for augmentation/obsession on his own /appetite/sleep. -When necessary Ativan and Haldol for agitation/aggression. -SW on board for discharge planning. Encouraged the patient to participate in milieu.
[2022-03-26] MEDS: OLANZapine 5 MG TAB PO SCH (20:55)
[2022-03-27] MEDS: FLUoxetine HCL 20 MG CAP PO SCH (08:33)
[2022-03-27] MEDS: SYMBICORT 80-4.5 MCG INHALER INHALATION SCH ×3 (08:35→22:43)
[2022-03-27] MEDS ORDERED: OLANZapine 2.5 MG TAB PO SCH (09:00)
[2022-03-27 11:39] LABS: African American GFR (CKD) >90 (>60 ml/min/1.73 sqM); Anion Gap 11 mmol/L; Blood Urea Nitrogen 16 mg/dL (9-20); Calcium 9.6 mg/dL (8.4-10.2); Carbon Dioxide 25 mmol/L (22-30); Chloride 103 mmol/L (98-107); Glucose 85 mg/dL (74-99); Non-African American GFR(CKD) >90 (>60 ml/min/1.73 sqM); Potassium 4.7 mmol/L (3.5-5.1); Sodium 139 mmol/L (137-145)
[2022-03-27] MEDS ORDERED: DOCUSATE 100 MG CAP PO PRN (15:55)
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
[2022-03-27] MEDS: OLANZapine 5 MG TAB PO SCH (20:52)
--- NOTE | 2022-03-27 21:10 | P.PN ---
Progress Note - Text Progress Note Date: 03/27/22 patient complains of sore throat, odynophagia, epigastric discomfort , chest congestion , generalized weakness and lack of energy patient reports a plethora of complaints. including having unprotected sex with men , with concerns regarding sexually transmitted disease. on exam general patient cooperative, looks tired , no acute distress chest good breath sounds bilatereally ENT, exudate over the base of the uveola , tongue with a thrush mild, non bleeding upon scraping no thrush over throat, no exudate over tonsiles . heart regular rate and rhythm , normal S1 S2 no leg edema bilaterally patient is known to have a lot of somatization plan check strep throat check HIV , patient gave verbal consent check CBC covid test this AM was negative check CXR start nystatin swish and swallow protonix daily
[2022-03-27] MEDS: NYSTATIN 100,000 UNIT/ML SUSP 500,000 UNIT/5 ML CUP PO SCH (21:47)
[2022-03-27] MEDS: PANTOPRAZOLE 40 MG TABLET PO SCH (21:48)
[2022-03-27] MEDS: hydrOXYzine pamoate 25 MG CAP PO PRN (22:38)
--- NOTE | 2022-03-27 23:39 | XR ---
EXAMINATION TYPE: XR chest 1V portable DATE OF EXAM: 03/27/2022 COMPARISON: 03/20/2022 HISTORY: Congestive TECHNIQUE: Single view FINDINGS: Heart and mediastinum are normal. Lungs are clear. Diaphragm is normal. Bony thorax appears normal. IMPRESSION: Normal chest. No change.
[2022-03-28] MEDS: SYMBICORT 80-4.5 MCG INHALER INHALATION SCH ×2 (08:39→21:00)
[2022-03-28] MEDS: NYSTATIN 100,000 UNIT/ML SUSP 500,000 UNIT/5 ML CUP PO SCH ×4 (08:40→21:00)
[2022-03-28] MEDS: PANTOPRAZOLE 40 MG TABLET PO SCH (08:40)
[2022-03-28] MEDS: OLANZapine 5 MG TAB PO SCH (08:40)
[2022-03-28] MEDS: FLUoxetine HCL 20 MG CAP PO SCH ×2 (08:40→15:18)
[2022-03-28 13:08] LABS: HCT 47.4 % (39.0-53.0); HGB 15.4 gm/dL (13.0-17.5); MCHC 32.6 g/dL (31.0-37.0); Mean Platelet Volume 7.7; Platelet Count 238 k/uL (150-450); RBC 5.33 m/uL (4.30-5.90); RDW 12.6 % (11.5-15.5); WBC 5.3 k/uL (3.8-10.6)
--- NOTE | 2022-03-28 17:18 | P.PN ---
Progress Note - Text Progress Note Date: 03/28/22 Interval History: Patient appeared anxious, knocked on the door to speak with psychiatrist. He refused his medications this morning, did not take the Prozac or Zyprexa this morning. He continues to be somatically preoccupied with multiple vague somatic complaints, complains of "body sensations don't feel the same", reports "seeing stars" in his eyes, his hands and feet are cold. He continues to be anxious and continues to think about his . He denies active suicidal or homicidal ideations intent or plan, but is still fixated on dying. He was seen by the medical doctor for oral thrush last night, and labs were ordered. HIV is pending. CXR is normal. Mental Status Exam: General Appearance: Patient appears to be stated age, unshaven, disheveled. Behavior: Patient appears anxious without any agitated behavior. Speech: Patient's speech is fluent and non-pressured. Mood/Affect: Mood is anxious, affect is congruent and constricted. Suicidality/Homicidality: Patient denies having any active suicidal or homicidal ideation intent or plan, but reports he is repeatedly thinking about his down . Perceptions: Patient denies any visual hallucinations and denies any auditory hallucinations. 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 -Medications: Increase Prozac to 60 mg daily starting today for depression/anxiety. He agreed to take his Prozac today after meeting with me. Decrease Zyprexa to 5 mg QHS for psychosis/augmentation/obsession on his own /appetite/sleep, due to patient reporting side effects at higher dose and refusing to take the morning dose. -Medical doctor has evaluated patient for thrush and started Nystatin. HIV pending. -When necessary Ativan and Haldol for agitation/aggression. -SW on board for discharge planning. Encouraged the patient to participate in milieu.
[2022-03-28] MEDS ORDERED: OLANZapine 5 MG TAB PO SCH (21:00)
[2022-03-28 21:20] LABS: HIV 2 AB Non-Reactive (Non-Reactive); HIV AB P24 Non-Reactive (Non-Reactive); HIV P24 AG Non-Reactive (Non-Reactive)
[2022-03-29] MEDS: SYMBICORT 80-4.5 MCG INHALER INHALATION SCH (08:48)
[2022-03-29] MEDS: NYSTATIN 100,000 UNIT/ML SUSP 500,000 UNIT/5 ML CUP PO SCH ×2 (08:48→12:22)
[2022-03-29] MEDS: FLUoxetine HCL 20 MG CAP PO SCH ×2 (08:49→14:03)
[2022-03-29] MEDS: PANTOPRAZOLE 40 MG TABLET PO SCH (08:49)
[2022-03-29 09:17] VITALS: BP 128/81; PULSE 96; RESP 20; TEMP 97.8
[2022-03-29 12:01] VITALS: BMI 18.1
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
--- NOTE | 2022-03-30 14:32 | CDI ---
Unable to determine Documentation Clarification Form Date: 03/30/2022 02:21:21 PM From: Coreen Laws Phone: Admit Date: 03/22/2022 04:06:00 PM Patient Name: Eb Akhtar Visit Number: [id number] Discharge Date: 03/29/2022 02:10:00 PM ATTENTION: The Clinical Documentation Specialists (CDI) and [facility] Coding Staff appreciate your assistance in clarifying documentation. Please respond to the clarification below the line at the bottom and electronically sign. The CDI & [facility] Coding staff will review the response and follow-up if needed. Please note: Queries are made part of the Legal Health Record. If you have any questions, please contact the author of this message via ITS. Dr. Peter Bushis documented per Dr. Luli Rodriguez MD 03/25/22. Additional clarification regarding is requested. History/Risk Factors: 27 yo M, Depersonalization/derealizationdisorder, MDD recurrent, MARCELLO, CharcotMarie Tooth Clinical Indicators: Current BMI: 18 Insufficient energy intake: He reports he is forcing himself to eat but doesn't have much of an appetite Weight Loss: He has lost weight in recent weeks to months, and is currently underweight Supplements: getting Ensure supplements currently Please clarify if there is an additional diagnosis appropriate, if known: [ ] Mild Protein-Calorie Malnutrition [ ] Moderate Protein-Calorie Malnutrition [ ] Severe Protein-Calorie Malnutrition [ ] Other condition, please specify [ ] Unable to Determine (Template Last Revised: October 2020) MTDD
== END 2022-03-29 14:10 | disposition home or self-care (01) | DRG 882 ==
LOC: EC 12:40 → 3MHU 16:06
PROVIDERS: ADMIT Psychiatry & Neurology Psychiatry; ATTEND Psychiatry & Neurology Psychiatry
DX: F48.1 Depersonalization-derealization syndrome (principal); B37.0 Candidal stomatitis; R45.851 Suicidal ideations; Z68.1 Body mass index [BMI] 19.9 or less, adult; F31.9 Bipolar disorder, unspecified; J45.909 Unspecified asthma, uncomplicated; J43.9 Emphysema, unspecified; G60.0 Hereditary motor and sensory neuropathy; F41.1 Generalized anxiety disorder; Z20.822 Contact with and (suspected) exposure to COVID-19; R63.6 Underweight; R13.10 Dysphagia, unspecified; K59.00 Constipation, unspecified; R09.89 Other specified symptoms and signs involving the circulatory and respiratory systems; Z62.810 Personal history of physical and sexual abuse in childhood; Z79.51 Long term (current) use of inhaled steroids; Z88.1 Allergy status to other antibiotic agents; Z88.5 Allergy status to narcotic agent; Z91.040 Latex allergy status; Z88.2 Allergy status to sulfonamides; Z90.89 Acquired absence of other organs; Z82.49 Family history of ischemic heart disease and other diseases of the circulatory system; Z56.0 Unemployment, unspecified; Z91.410 Personal history of adult physical and sexual abuse; Z80.0 Family history of malignant neoplasm of digestive organs; Z87.820 Personal history of traumatic brain injury
CPT/HCPCS: 71045; 80048; 80053; 80061; 80306; 81003; 82075; 82248; 83036; 84443; 85025; 85027; 87390; 87635; 87651; 99285